=== PATIENT | female | born 1945 | race Caucasian/White ===

== ENCOUNTER 2019-01-06 13:54 | Emergency (ER) | payer MEDICARE, OTHER ==
[~2019-01-06] VITALS: Ht 175.3 cm; Wt 86.2 kg
[2019-01-06] MEDS ORDERED: NS IV 500 ML 500 ML IV ONE (14:02)
--- NOTE | 2019-01-06 14:31 | Diagnostic Imaging Report ---
PROCEDURE: CT head without contrast. TECHNIQUE: Multiple contiguous axial images were obtained through the brain without the use of intravenous contrast. Auto Exposure Controls were utilized during the CT exam to meet ALARA standards for radiation dose reduction. INDICATION: Intermittent dizziness and history of TIA. COMPARISON: No prior examinations are available for comparison. FINDINGS: The ventricles and sulci are within normal limits. There is no hydrocephalus or cerebral edema. There is no midline shift or mass effect. There is no intracranial mass, hemorrhage, or extra-axial fluid collection. The visualized paranasal sinuses and mastoid air cells are clear. There are no regional areas of decreased attenuation appreciated to suggest an acute CVA. IMPRESSION: No acute intracranial abnormality. Dictated by: Dictated on workstation # [id number]
--- NOTE | 2019-01-06 14:33 | ED General ---
General Chief Complaint: Dizziness/Syncope Stated Complaint: DIZZY,LIGHTHEADED,SOB Nursing Triage Note: Patient reports dizziness with position changes, specifically moving her head back and side to side, reports no dizziness at rest. She also reports shortness of breath, denies any chest pain. Nursing Sepsis Screen: No Definite Risk Source of Information: Patient History of Present Illness Date Seen by Provider: Jan 06, 2019 Time Seen by Provider: 14:00 Initial Comments 73-year-old female presents dizziness. She reports a gets worse with head movement especially if she tilts her head back or moves it side to side. She denies dizziness with rest. She denies any new medications. She was concerned that possibly might be her blood sugar. Patient states she's had some mild shortness of breath. She denies any chest pain, nausea, vomiting, photophobia, vision changes, acute focal deficits or weakness. Reports it started earlier today. Allergies and Home Medications Allergies Coded Allergies: prochlorperazine (Verified Allergy, Unknown, 01/06/19) shrimp (Verified Allergy, Unknown, 01/06/19) Patient Home Medication List Home Medication List Reviewed: Yes Review of Systems Review of Systems Constitutional: No chills, No diaphoresis; dizziness; No fever, No weakness EENTM: no symptoms reported; No blurred vision, No double vision, No eye pain, No vision loss Respiratory: No cough, No orthopnea, No wheezing Cardiovascular: No chest pain, No palpitations Gastrointestinal: No abdominal pain Genitourinary: no symptoms reported Musculoskeletal: no symptoms reported Skin: no symptoms reported Psychiatric/Neurological: No Symptoms Reported Hematologic/Lymphatic: No Symptoms Reported Past Ntnlamd-Djsetz-Oapywc Hx Past Med/Social Hx: Reviewed Nursing Past Med/Soc Hx Patient Social History Recent Foreign Travel: No Contact w/Someone Who Travel: No Recent Infectious Disease Expo: No Physical Abuse: No Sexual Abuse: No Mistreated: No Fear: No Physical Exam Vital Signs Vital Signs - First Documented 01/06/19 14:00 Temp 98.4 Pulse 91 Resp 18 B/P (MAP) 150/67 (94) Pulse Ox 95 O2 Delivery Room Air Capillary Refill : Less Than 3 Seconds Height, Weight, BMI Height: 5'9.00" Weight: 190lbs. oz. 86.157328wx; BMI Method:Stated General Appearance: No Apparent Distress Eyes: Bilateral Eye Normal Inspection, Bilateral Eye PERRL, Bilateral Eye EOMI HEENT: PERRL/EOMI, TMs Normal, Normal ENT Inspection Neck: Normal Inspection Respiratory: Chest Non Tender, Lungs Clear Cardiovascular: Regular Rate, Rhythm, No Edema Gastrointestinal: Non Tender, Soft Extremity: Normal Capillary Refill, Normal Range of Motion Neurologic/Psychiatric: Alert, Oriented x3, No Motor/Sensory Deficits, Normal Mood/Affect, [employer] operations specialist II-XII Norm as Tested Skin: Normal Color, Warm/Dry Progress/Results/Core Measures Suspected Sepsis Recent Fever Within 48 Hours: No Infection Criteria Present: None New/Unexplained Altered Menta: No Sepsis Screen: No Definite Risk SIRS Temperature:98.4 Pulse: 91 Respiratory Rate: 18 Laboratory Tests 01/06/19 14:05: White Blood Count 6.6 Blood Pressure 150 /67 Mean: 94 Laboratory Tests 01/06/19 14:05: Creatinine 0.62, Platelet Count 243, Total Bilirubin 0.4 Results/Orders Lab Results Laboratory Tests Test 01/06/19 14:05 01/06/19 14:26 Range/Units White Blood Count 6.6 4.3-11.0 10^3/uL Red Blood Count 4.22 L 4.35-5.85 10^6/uL Hemoglobin 12.4 11.5-16.0 G/DL Hematocrit 37 35-52 % Mean Corpuscular Volume 87 80-99 FL Mean Corpuscular Hemoglobin 29 25-34 PG Mean Corpuscular Hemoglobin Concent 34 32-36 G/DL Red Cell Distribution Width 13.4 10.0-14.5 % Platelet Count 243 130-400 10^3/uL Mean Platelet Volume 10.8 H 7.4-10.4 FL Neutrophils (%) (Auto) 67 42-75 % Lymphocytes (%) (Auto) 22 12-44 % Monocytes (%) (Auto) 7 0-12 % Eosinophils (%) (Auto) 2 0-10 % Basophils (%) (Auto) 1 0-10 % Neutrophils # (Auto) 4.5 1.8-7.8 X 10^3 Lymphocytes # (Auto) 1.5 1.0-4.0 X 10^3 Monocytes # (Auto) 0.5 0.0-1.0 X 10^3 Eosinophils # (Auto) 0.1 0.0-0.3 10^3/uL Basophils # (Auto) 0.0 0.0-0.1 10^3/uL Sodium Level 134 L 135-145 MMOL/L Potassium Level 4.4 3.6-5.0 MMOL/L Chloride Level 96 L 98-107 MMOL/L Carbon Dioxide Level 22 21-32 MMOL/L Anion Gap 16 H 5-14 MMOL/L Blood Urea Nitrogen 15 7-18 MG/DL Creatinine 0.62 0.60-1.30 MG/DL Estimat Glomerular Filtration Rate > 60 BUN/Creatinine Ratio 24 Glucose Level 259 H 70-105 MG/DL Glucometer 236 H 70-110 MG/DL Calcium Level 10.9 H 8.5-10.1 MG/DL Corrected Calcium 10.7 H 8.5-10.1 MG/DL Total Bilirubin 0.4 0.1-1.0 MG/DL Aspartate Amino Transf (AST/SGOT) 33 5-34 U/L Alanine Aminotransferase (ALT/SGPT) 71 H 0-55 U/L Alkaline Phosphatase 289 H 40-136 U/L Troponin I < 0.30 <0.30 NG/ML Total Protein 7.0 6.4-8.2 GM/DL Albumin 4.3 3.2-4.5 GM/DL Urine Color YELLOW Urine Clarity CLEAR Urine pH 6.0 5-9 Urine Specific [place] 1.015 L 1.016-1.022 Urine Protein NEGATIVE NEGATIVE Urine Glucose (UA) 1+ H NEGATIVE Urine Ketones NEGATIVE NEGATIVE Urine Nitrite NEGATIVE NEGATIVE Urine Bilirubin NEGATIVE NEGATIVE Urine Urobilinogen 0.2 NORMAL MG/DL Urine Leukocyte Esterase NEGATIVE NEGATIVE Urine RBC (Auto) NEGATIVE NEGATIVE Urine RBC RARE /HPF Urine WBC NONE /HPF Urine Squamous Epithelial Cells 2-5 /HPF Urine Crystals NONE /LPF Urine Bacteria NEGATIVE /HPF Urine Casts NONE /LPF Urine Mucus NEGATIVE /LPF Urine Culture Indicated NO My Orders Orders - PETTIT,MIKE L DO Accucheck Stat ONCE (01/06/19 14:02) Ed Iv/Invasive Line Start (01/06/19 14:02) Ekg Tracing (01/06/19 14:02) Monitor-Rhythm Ecg Trace Only (01/06/19 14:02) Orthostatic Vital Signs (Adult (01/06/19 14:02) Cbc With Automated Diff (01/06/19 14:02) Comprehensive Metabolic Panel (01/06/19 14:02) Troponin I (01/06/19 14:02) Ct Head Wo (01/06/19 14:02) Ed Iv/Invasive Line Start (01/06/19 14:02) Ns Iv 500 Ml (Sodium Chloride 0.9%) (01/06/19 14:02) Meclizine Tablet (Antivert Tablet) (01/06/19 14:45) Ua Culture If Indicated (01/06/19 15:25) Medications Given in ED Current Medications Medications Dose Ordered Sig/Lee Route Start Time Stop Time Status Last Admin Dose Admin Meclizine HCl 25 mg ONCE ONCE PO 01/06/19 14:45 01/06/19 14:46 DC 01/06/19 14:46 25 MG Sodium Chloride 500 ml @ 0 mls/hr Q0M ONCE IV 01/06/19 14:02 01/06/19 14:06 DC 01/06/19 14:18 0 MLS/HR Vital Signs/I&O 01/06/19 01/06/19 14:00 14:47 Temp 98.4 Pulse 91 Resp 18 B/P (MAP) 150/67 (94) 142/62 (88) 136/69 (91) 129/66 (87) Pulse Ox 95 O2 Delivery Room Air Capillary Refill : Less Than 3 Seconds Blood Pressure Mean: 94 Point of Care Testing Finger Stick Blood Glucose: 238 Progress Note : Time: 15:40 Progress Note Patient's symptoms have completely resolved following her IV fluids and meclizine. She is does minimally better. I reviewed patient's labs with her. I discussed that I would like her to follow up with her primary care physician to have her labs reviewed ensure that there is no acute process happening with her elevated liver enzyme and alkaline phosphatase was some slight increase in her calcium. Patient will follow-up with her primary care physician in [place] for further evaluation and she is will be discharged home in stable condition. ECG Initial ECG Impression Date: Jan 06, 2019 Initial ECG Impression Time: 14:12 Initial ECG Rhythm: Normal Sinus Initial ECG Intervals: Normal Initial ECG Impression: Normal Diagnostic Imaging Diagonstic Imaging: CT Plain Films/CT/US/NM/MRI: head Reviewed: Reviewed by Me Departure Impression Primary Impression: Vertigo Disposition: 01 HOME, SELF-CARE Condition: Stable Departure-Patient Inst. Patient Instructions: Vertigo (a Type of Dizziness) (DC), Heat Exhaustion and Heat Stroke (DC) MIKE PETTIT DO Jan 06, 2019 14:33
[2019-01-06 14:34] LABS: HEMATOCRIT 37 % (35-52); HEMOGLOBIN 12.4 G/DL (11.5-16.0); MEAN CORPUSCULAR HEMOGLOBIN 29 PG (25-34); MEAN CORPUSCULAR HGB CONC 34 G/DL (32-36); MEAN CORPUSCULAR VOLUME 87 FL (80-99); PLATELET COUNT 243 10^3/uL (130-400); RED CELL DISTRIBUTION WIDTH 13.4 % (10.0-14.5); WHITE BLOOD COUNT 6.6 10^3/uL (4.3-11.0)
[2019-01-06 14:35] LABS: BASOPHILS % (AUTO) 1 % (0-10); EOSINOPHILS # (AUTO) 0.1 10^3/uL (0.0-0.3); EOSINOPHILS % (AUTO) 2 % (0-10); LYMPHOCYTES # (AUTO) 1.5 X 10^3 (1.0-4.0); LYMPHOCYTES % (AUTO) 22 % (12-44); MEAN PLATELET VOLUME 10.8 FL (7.4-10.4); MONOCYTES # (AUTO) 0.5 X 10^3 (0.0-1.0); MONOCYTES % (AUTO) 7 % (0-12); NEUTROPHILS # (AUTO) 4.5 X 10^3 (1.8-7.8); NEUTROPHILS % (AUTO) 67 % (42-75)
[2019-01-06] MEDS ORDERED: MECLIZINE 25 MG (ANTIVERT) TAB PO ONE (14:45)
[2019-01-06 14:47] VITALS: BP_SYST 129; BP_SYST 136; BP_SYST 142; BP_DIAS 62; BP_DIAS 66; BP_DIAS 69
[2019-01-06 15:52] LABS: CHLORIDE 96 MMOL/L (98-107); POTASSIUM 4.4 MMOL/L (3.6-5.0); SODIUM 134 MMOL/L (135-145)
[2019-01-06 15:53] LABS: ALANINE AMINOTRANSFERASE 71 U/L (0-55); ALBUMIN 4.3 GM/DL (3.2-4.5); ALKALINE PHOSPHATASE 289 U/L (40-136); BILIRUBIN,TOTAL 0.4 MG/DL (0.1-1.0); BUN/CREATININE RATIO 24; CALCIUM 10.9 MG/DL (8.5-10.1); CARBON DIOXIDE 22 MMOL/L (21-32); CREATININE SERUM 0.62 MG/DL (0.60-1.30); GFR ESTIMATED > 60; GLUCOSE 259 MG/DL (70-105)
[2019-01-06 15:54] LABS: CLARITY,URINE CLEAR; COLOR,URINE YELLOW; GLUCOSE, URINE (UA) 1+ (NEGATIVE); KETONES,URINE NEGATIVE (NEGATIVE); PROTEIN,URINE NEGATIVE (NEGATIVE)
[2019-01-06 15:55] LABS: BACTERIA,URINE NEGATIVE /HPF; BILIRUBIN,URINE NEGATIVE (NEGATIVE); LEUKOCYTE ESTERASE ,URINE NEGATIVE (NEGATIVE); NITRITE,URINE NEGATIVE (NEGATIVE); RBC,URINE RARE /HPF; UROBILINOGEN,URINE 0.2 MG/DL (NORMAL)
[2019-01-06 16:20] VITALS: BP 148/70
== END 2019-01-06 16:25 | disposition home or self-care (01) ==
LOC: ER FS 13:56
DX: R42 Dizziness and giddiness (principal); Z88.8 Allergy status to other drugs, medicaments and biological substances
CPT/HCPCS: 36415; 70450; 80053; 81000; 82962; 84484; 85025; 93005; 93041